=== PATIENT | male | born 1975 | race Caucasian/White ===

== ENCOUNTER 2016-05-24 23:48 | Emergency (ER) | payer SELFPAY ==
--- NOTE | 2016-05-25 07:59 | RAD ---
05/25/2016 7:55 AM CHEST - 2 VIEWS History: Wheezing for 2 hours. Increasing shortness of breath over the last 2 weeks. Comparison: None Findings: Two views of the chest are obtained. The lungs are clear with out effusion or pneumothorax. The cardiomediastinal silhouette is unremarkable.. The osseous structures are intact.. IMPRESSION: No acute intrathoracic process.
== END 2016-05-25 04:20 | disposition home or self-care (01) ==
LOC: ED 23:48
DX: R06.02 Shortness of breath (principal); J45.909 Unspecified asthma, uncomplicated

== ENCOUNTER 2016-05-27 22:32 | Emergency (ER) | payer OTHER ==
[2016-05-28] MEDS ORDERED: MAALOX/LIDO2%VISC/SIMETHICONE 40 ML BOT ONE (01:04)
[2016-05-28] MEDS ORDERED: ONDANSETRON 4 MG ODT TAB ONE (01:05)
--- NOTE | 2016-05-28 07:43 | RAD ---
Exam: Two-view chest COMPARISON: 05/25/2016 INDICATION: Cough, recent bronchitis. FINDINGS: PA and lateral views of the chest were obtained. Cardiac silhouette is within normal limits and stable. Lungs are well-inflated. There is no focal airspace or pleural effusion. Several old rib fractures are appreciated. IMPRESSION: No radiographic evidence of pneumonia.
== END 2016-05-28 02:19 | disposition home or self-care (01) ==
LOC: ED 22:32
DX: K21.9 Gastro-esophageal reflux disease without esophagitis (principal); F41.9 Anxiety disorder, unspecified; J45.909 Unspecified asthma, uncomplicated
CPT/HCPCS: 71020; 99283 ×2; 93005; A9270 ×2